=== PATIENT | female | born 1940 | race Caucasian/White ===

== ENCOUNTER 2020-02-05 12:11 | Emergency (ER) | payer MEDICARE ==
[~2020-02-05] VITALS: Ht 172.7 cm; Wt 90.9 kg
[2020-02-05] MEDS ORDERED: NEOMY/BACITR/POLYMYXIN OINT PACKET. TP ONE (12:30)
[2020-02-05] MEDS ORDERED: LIDOCAINE 2%/EPI 1:100,000 20 ML VIAL. IJ ONE (12:30)
--- NOTE | 2020-02-05 13:10 | RAD ---
RS Compliance Statement: One or more of the following individualized dose reduction techniques were utilized for this examination: 1. Automated exposure control 2. Adjustment of the mA and/or kV according to patient size 3. Use of iterative reconstruction technique CT HEAD WITHOUT CONTRAST History: Reason: headache, left supraorbital laceration s/p fall Comparison: None. Technique: Axial images are obtained of the head from the skull base through the vertex without IV contrast. Findings: No mass-effect, midline shift, extra-axial fluid collection, hemorrhage, or obvious acute infarction is identified. Basilar cisterns are patent. The ventricles and sulci are normal for patient age. Bone windows demonstrate no acute calvarial abnormality. There is mild left supraorbital scalp hematoma. The globes are intact. The visualized paranasal sinuses are clear. Mastoid air cells are well aerated. IMPRESSION: 1. No acute intracranial abnormality. 2. Mild left supraorbital scalp hematoma. Electronically signed by: Kwan Ansari MD (02/05/2020 1:07 PM) [id number]
[2020-02-05 13:15] VITALS: BP 139/78
--- NOTE | 2020-02-05 14:02 | PHYS DOC ---
Past History Past Medical History: Angina, High Cholesterol, Hypertension Alcohol Use: None General Adult EDM: Chief Complaint: LACERATION/AVULSION HPI: HPI: Patient is a [age] year old [sex] who presents with [] Review of Systems: Review of Systems: Constitutional: Denies fever or chills Eyes: Denies change in visual acuity HENT: Denies nasal congestion or sore throat Respiratory: Denies cough or shortness of breath Cardiovascular: Denies chest pain or edema GI: Denies abdominal pain, nausea, vomiting, bloody stools or diarrhea : Denies dysuria Musculoskeletal: Denies back pain or joint pain Integument: Denies rash Neurologic: Denies headache, focal weakness or sensory changes Endocrine: Denies polyuria or polydipsia Lymphatic: Denies swollen glands Psychiatric: Denies depression or anxiety Heart Score: Risk Factors: Risk Factors: DM, Current or recent (<one month) smoker, HTN, HLP, family history of CAD, obesity. Risk Scores: Score 0 - 3: 2.5% MACE over next 6 weeks - Discharge Home Score 4 - 6: 20.3% MACE over next 6 weeks - Admit for Clinical Observation Score 7 - 10: 72.7% MACE over next 6 weeks - Early Invasive Strategies Current Medications: Current Meds: Current Medications Medications (Trade) Dose Ordered Sig/[facility] Start Time Stop Time Status Last Admin Dose Admin Lidocaine/ Epinephrine (Xylocaine 2%-Epi 1:100,000) 20 ml 1X ONCE 02/05/20 12:30 02/05/20 12:31 DC 02/05/20 12:53 20 ML Neomycin/ Polymyxin/ Bacitracin (Triple Antibiotic Ointment) 1 pkt 1X ONCE 02/05/20 12:30 02/05/20 12:31 DC 02/05/20 12:53 1 PKT Allergies: Allergies: Allergies Coded Allergies Type Severity Reaction Last Updated Verified No Known Drug Allergies 02/05/20 No Physical Exam: PE: Constitutional: Well developed, well nourished, no acute distress, non-toxic appearance. [] HENT: Normocephalic, atraumatic, bilateral external ears normal, oropharynx moist, no oral exudates, nose normal. [] Eyes: PERRLA, EOMI, conjunctiva normal, no discharge. [] Neck: Normal range of motion, no tenderness, supple, no stridor. [] Cardiovascular:Heart rate regular rhythm, no murmur [] Lungs & Thorax: Bilateral breath sounds clear to auscultation [] Abdomen: Bowel sounds normal, soft, no tenderness, no masses, no pulsatile masses. [] Skin: Warm, dry, no erythema, no rash. [] Back: No tenderness, no CVA tenderness. [] Extremities: No tenderness, no cyanosis, no clubbing, ROM intact, no edema. [] Neurologic: Alert and oriented X 3, normal motor function, normal sensory function, no focal deficits noted. [] Psychologic: Affect normal, judgement normal, mood normal. [] Current Patient Data: Vital Signs: Vital Signs Date Time Temp Pulse Resp B/P (MAP) Pulse Ox O2 Delivery O2 Flow Rate FiO2 02/05/20 13:15 90 16 139/78 (98) 98 Room Air 02/05/20 12:11 98.1 EKG: EKG: [] Radiology/Procedures: Radiology/Procedures: PROCEDURE: CT HEAD WO CONTRAST PQRS Compliance Statement: One or more of the following individualized dose reduction techniques were utilized for this examination: 1. Automated exposure control 2. Adjustment of the mA and/or kV according to patient size 3. Use of iterative reconstruction technique CT HEAD WITHOUT CONTRAST History: Reason: headache, left supraorbital laceration s/p fall Comparison: None. Technique: Axial images are obtained of the head from the skull base through the vertex without IV contrast. Findings: No mass-effect, midline shift, extra-axial fluid collection, hemorrhage, or obvious acute infarction is identified. Basilar cisterns are patent. The ventricles and sulci are normal for patient age. Bone windows demonstrate no acute calvarial abnormality. There is mild left supraorbital scalp hematoma. The globes are intact. The visualized paranasal sinuses are clear. Mastoid air cells are well aerated. IMPRESSION: 1. No acute intracranial abnormality. 2. Mild left supraorbital scalp hematoma. Electronically signed by: Kwan Ansari MD (02/05/2020 1:07 PM) [id number] Course & Med Decision Making: Course & Med Decision Making Pertinent Labs and Imaging studies reviewed. (See chart for details) [] Dragon Disclaimer: Dragon Disclaimer: This electronic medical record was generated, in whole or in part, using a voice recognition dictation system. Departure Departure: Impression: Primary Impression: Fall Qualified Codes: W19.XXXA - Unspecified fall, initial encounter Additional Impression: Laceration Disposition: HOME/RESIDENCE PRIOR TO ADM Condition: STABLE Referrals: PCP,NO (PCP) Patient Instructions: Facial Laceration, [id number], Fall Prevention and Home Safety, [id number], Laceration Care, Adult, [id number] Additional Instructions: Do not soak your wound. You may shower. Clean wound daily with soap and water. Change dressing 2 times daily. Use over the counter antibiotic ointment with each dressing change. Sutures need to be removed in 5 days. Present to your family doctor or local urgent care for removal. You may also present to the ED but it will be an additional visit/charge. After suture removal you may use Vitamin E ointment to soften the wound and prevent scarring. Justification of Admission: Justification of Admission: Justification of Admission Dx: N/A ANDRA GELLER DO Feb 05, 2020 14:02
== END 2020-02-05 14:25 | disposition home or self-care (01) ==
LOC: ER 12:11
DX: S01.81XA Laceration without foreign body of other part of head, initial encounter (principal); E78.00 Pure hypercholesterolemia, unspecified; I10 Essential (primary) hypertension; W01.198A Fall on same level from slipping, tripping and stumbling with subsequent striking against other object, initial encounter; Y93.89 Activity, other specified; Y92.89 Other specified places as the place of occurrence of the external cause; Y99.8 Other external cause status
CPT/HCPCS: 12011; 70450; 99284